=== PATIENT | female | born 1985 | race Two or more races ===

== ENCOUNTER → 2024-03-17 | Outpatient (CLI) | payer BC, SELFPAY ==
--- NOTE | 2024-03-17 13:30 | XR_ITS ---
Examination: Breast ultrasound complete, bilateral Date and time of exam: March 17, 2024 1345 hours INDICATIONS: Lump in the right breast 12:00 position note is beginning 5 days ago, palpable lump on clinical breast examination by physician this week 11:00 left breast Technique: Real-time grayscale ultrasonographic imaging bilateral breasts, including all 4 quadrants as well as nipple retroareolar and axillary regions. Findings: Sonographic images right breast 1:00 cyst 6.2 x 4.7 cm 7:00 cyst 13 x 11 mm 7:00 cyst 2.6 x 1.8 cm Retroareolar circumscribed nodule 10 x 6 x 8 mm Sonographic images left breast 1:00 cyst 11 x 9 mm, aerated 2:00 cyst 8 x 10 mm 4:00 cyst 11 x 8 mm 11:00 cyst 19 x 17 mm IMPRESSION: BI-RADS Category 3: Probably benign findings Recommend 1 additional 6 month right breast sonogram follow-up to document stability of right breast retroareolar nodule
== END | disposition home or self-care (01) ==
PROVIDERS: Referring Provider Nurse Practitioner Family; Visit Provider Nurse Practitioner Family
DX: N63.41 Unspecified lump in right breast, subareolar (principal)
CPT/HCPCS: 76641

== ENCOUNTER → 2024-04-28 | Outpatient (CLI) | payer BC, SELFPAY ==
--- NOTE | 2024-04-28 13:15 | XR_ITS ---
Examination: Diagnostic digital mammography, bilateral Computer aided detection 3-D breast Tomosynthesis, bilateral Date and time of exam: April 28, 2024 1340 hours INDICATIONS: Patient states lump right breast note is beginning 2 months ago Technique: Nonmagnified MLO, CC views of the breasts to been obtained, reconstructed from 3-D Tomosynthesis images. R2 computer aided detection program utilized for evaluation of suspicious masses and/or abnormal calcifications. 3-D Tomosynthesis images obtained. Findings: The breasts are extremely dense which limits the sensitivity of mammography 5 cm circumscribed mass right breast is noted corresponding to 1:00 cyst described on right breast sonogram today No suspicious masses are identified Impression: BI-RADS Category 2: Benign findings Please see the bilateral breast sonography report today.
== END | disposition home or self-care (01) ==
LOC: CDIM 12:59
PROVIDERS: Referring Provider Nurse Anesthetist, Certified Registered; Visit Provider Nurse Anesthetist, Certified Registered
DX: R92.323 Mammographic fibroglandular density, bilateral breasts (principal)
CPT/HCPCS: 77062; 77066; G0279

== ENCOUNTER → 2024-10-11 | Outpatient (CLI) | payer BC, SELFPAY ==
--- NOTE | 2024-10-11 07:30 | XR_ITS ---
Examination: Breast ultrasound, unilateral, right completely Date and time of exam: October 11, 2024, 0744 hours INDICATIONS: Bilateral breast sonography March 17, 2024 right breast retroareolar nodule 10 mm, multiple sclerosis Technique: Real-time fernandez scale ultrasonographic imaging performed right breast including all 4 quadrants as well as nipple retroareolar and axillary region. Findings: Multiple benign cysts 8:00 nodule circumscribed 8 x 8 mm IMPRESSION: BI-RADS Category 3: Probably benign findings. Recommend 1 additional 6 month right breast sonogram follow-up to document stability of 8:00 nodule described above
== END | disposition home or self-care (01) ==
LOC: CDIM 07:16
PROVIDERS: Referring Provider Surgery; Visit Provider Surgery
DX: N63.13 Unspecified lump in the right breast, lower outer quadrant (principal)
CPT/HCPCS: 76641